=== PATIENT | female | born 1975 | race Caucasian/White ===

== ENCOUNTER → 2025-07-14 | Outpatient (CLI) | payer OTHER, SELFPAY ==
[2025-07-14 14:40] LABS: Hematocrit 41.7 % (37-47); Hemoglobin 13.5 g/dL (12.0-15.0); Immature Granulocytes Count 0.010 X10^3/uL (0.0-0.0); Mean Corp Hgb Conc 32.4 g/dL (32-36); Mean Corpuscular Volume 88.7 fL (81-99); Mean Platelet Vol. 10.8 fl (6.2-12.0); NRBC Flagged by Analyzer 0 % (0-5); Platelet Count 269 K/mm3 (150-450); RBC Distribution Width CV 14.8 % (11.6-14.6); RBC Distribution Width SD 48.5 fl (35.1-43.9); Red Blood Count 4.70 M/mm3 (4.2-5.4); White Blood Count 5.4 K/mm3 (4.4-11.0)
[2025-07-14 15:14] LABS: AST(SGOT) 17 U/L (<=31); Alanine Aminotransfer ALT/SGPT 12 U/L (<=34); Albumin, Serum 4.7 g/dL (3.5-5.0); Alkaline Phosphatase 71 U/L (35-104); Anion Gap 14 (5-15); BUN 11 mg/dL (4-19); BUN/Creat Ratio 16.1 RATIO (10-20); Calcium,Total 9.1 mg/dL (7.6-11.0); Carbon Dioxide 23.1 mmol/L (21.0-32.0); Chloride 102 mmol/L (98-108); Cholesterol 198 mg/dL (<=200); Ferritin 30 ng/mL (22-378); Free T3 2.6 pg/mL (2.18-3.98); Globulin 2.7 g/dL (2.2-4.2); Glucose 89 mg/dL (70-99); Low Density Lipoprotein Calc. 114 mg/dL; Potassium 3.9 mmol/L (3.3-5.1); Triglycerides 67 mg/dL; Very Low Density Lipoprotein 13 mg/dL (5-40); cholesterol:hdl ratio screen 2.80
[2025-07-14 15:29] LABS: CRP < 3.00 mg/L (0.0-3.0); Iron 146 ug/dL (50-170); Uric Acid 5.2 mg/dL (2.6-6.0)
[2025-07-14 16:16] LABS: Fibrinogen 258 mg/dl (203-444)
[2025-07-16 04:07] LABS: CRP, High Sensitivity 0.66 mg/L (0.00-3.00); HOMOCYSTEINE 8.3 umol/L (0.0-14.5); PROGESTERONE 0.4 ng/mL (.)
[2025-07-18 10:08] LABS: Red Blood Cell Count Test/G6PD 4.74 x10E6/uL (3.77-5.28)
== END | disposition home or self-care (01) ==
PROVIDERS: Referring Provider Nurse Practitioner Family; Visit Provider Nurse Practitioner Family
DX: I95.0 Idiopathic hypotension (principal); R53.1 Weakness; R53.82 Chronic fatigue, unspecified; G47.00 Insomnia, unspecified; H53.8 Other visual disturbances; H93.13 Tinnitus, bilateral; R09.82 Postnasal drip; R07.0 Pain in throat; R06.00 Dyspnea, unspecified; R00.2 Palpitations; K59.00 Constipation, unspecified; R14.0 Abdominal distension (gaseous); K21.9 Gastro-esophageal reflux disease without esophagitis; R35.1 Nocturia; K64.9 Unspecified hemorrhoids; M13.80 Other specified arthritis, unspecified site; G31.84 Mild cognitive impairment of uncertain or unknown etiology; R51.9 Headache, unspecified; D64.9 Anemia, unspecified; R59.0 Localized enlarged lymph nodes
CPT/HCPCS: 80053; 80061; 82627; 82670; 82728; 82955; 83090; 83525; 83540; 83695; 84144; 84403; 84439; 84443; 84481; 84550; 85025; 85384; 86140; 86141; 86376; 82626